=== PATIENT | male | born 1930 | race Caucasian/White ===

== ENCOUNTER 2018-02-15 12:59 | Emergency (ER) | payer MEDICARE, OTHER ==
[~2018-02-15] VITALS: Ht 180.3 cm; Wt 73.5 kg
[~2018-02-15 12:59] MED LIST: ASPI325 PO; DONE5 PO; GABA300 PO; LAMZIDT; PARO10; QUET25; TAMS.4ER PO; TRAM50
[2018-02-15] MEDS ORDERED: TRAZODONE (13:13)
[2018-02-15] MEDS ORDERED: Ultram50 MG PO (15:19)
== END 2018-02-15 18:40 | disposition home or self-care (01) ==
LOC: ER 12:59
DX: M54.5 Low back pain (principal); G89.29 Other chronic pain; J44.9 Chronic obstructive pulmonary disease, unspecified; F03.90 Unspecified dementia, unspecified severity, without behavioral disturbance, psychotic disturbance, mood disturbance, and anxiety; Z87.891 Personal history of nicotine dependence; Z79.899 Other long term (current) drug therapy
CPT/HCPCS: 72100; 99283-25